=== PATIENT | male | born 1995 | race Two or more races ===

== ENCOUNTER 2024-04-30 23:33 | Emergency (ER) | payer SELFPAY ==
[~2024-04-30] VITALS: Ht 170.2 cm; Wt 73.0 kg
[2024-04-30 23:52] VITALS: O2SAT 98
[2024-05-01] MEDS ORDERED: OXYCODONE HCL/ACETAMINOPHEN 5/325MG TABLET PO ONE (01:00)
[2024-05-01] MEDS ORDERED: IBUP-2030 MT (02:30)
[2024-05-01 02:47] VITALS: TEMP 36.89184; O2SAT 98
[2024-05-01 02:48] VITALS: BP 135/79; PULSE 87; RESP 17
[2024-05-01] MEDS: OXYCODONE HCL/ACETAMINOPHEN 5/325MG TABLET PO NR (02:48)
== END 2024-05-01 02:51 | disposition home or self-care (01) ==
LOC: ER 05-01 00:39
DX: S09.90XA Unspecified injury of head, initial encounter (principal); Y08.89XA Assault by other specified means, initial encounter; Y93.89 Activity, other specified; Y92.89 Other specified places as the place of occurrence of the external cause; Y99.8 Other external cause status
CPT/HCPCS: 70486; 99284